=== PATIENT | female | born 1955 | race Caucasian/White ===

== ENCOUNTER 2024-04-23 10:28 | Day surgery (SDC) | payer BC ==
[~2024-04-23 10:28] MED LIST: Ondansetron 4 MG/2 ML SDV IVPUSH PRN; Sodium Chloride 0.9% 10 ML Syringe FLUSH PRN; Sodium Chloride 0.9% 10 ML Syringe FLUSH SCH
[2024-04-23] MEDS ORDERED: EPINEPHrine 1 MG/ML SDV ONE ×2 (10:47→10:49)
[2024-04-23] MEDS: Lactated Ringers 1,000 ML IV SCH (10:55)
[2024-04-23] MEDS ORDERED: Propofol 200 MG/20 ML SDV ONE (11:08)
[2024-04-23] MEDS ORDERED: Lidocaine 2% 5 ML SDV ONE (11:08)
[2024-04-23] MEDS ORDERED: Ketorolac 15 MG/ML SDV ONE (11:15)
[2024-04-23] MEDS ORDERED: Ondansetron 4 MG/2 ML SDV ONE (11:16)
[2024-04-23] MEDS ORDERED: Dexamethasone 4 MG/ML 5 ML MDV ONE (11:16)
[2024-04-23] MEDS ORDERED: ceFAZolin 2 GM Vial ONE (11:22)
[2024-04-23] MEDS ORDERED: fentaNYL 100 MCG/2 ML SDV ONE (11:34)
[2024-04-23] MEDS: Bupivacaine 0.25% 10 ML SDV ONE (11:44)
[2024-04-23] MEDS: fentaNYL 100 MCG/2 ML SDV IVPUSH PRN (12:18)
[2024-04-23] MEDS: Acetaminophen/HYDROcodone 325-5 MG Tab PO PRN (13:26)
== END 2024-04-23 15:00 | disposition home or self-care (01) ==
LOC: JD.SDS 10:28
PROVIDERS: ATTEND Orthopaedic Surgery
DX: S83.242A Other tear of medial meniscus, current injury, left knee, initial encounter (principal); M94.262 Chondromalacia, left knee; I10 Essential (primary) hypertension; E03.9 Hypothyroidism, unspecified; K21.9 Gastro-esophageal reflux disease without esophagitis; Z79.890 Hormone replacement therapy; Z79.899 Other long term (current) drug therapy
CPT/HCPCS: 29881; A9270; J0171; J0665; J0690; J1100; J1885; J2405; J2704; J3010; J7120; 01400; J3490